=== PATIENT | female | born 1985 | race Caucasian/White ===

== ENCOUNTER 2021-04-26 10:59 | Emergency (ER) | payer OTHER ==
[~2021-04-26] VITALS: Ht 167.6 cm; Wt 49.9 kg
[2021-04-26 11:04] VITALS: BP_SYST 125
[2021-04-26 11:39] VITALS: BP_SYST 125
== END 2021-04-26 11:39 | disposition home or self-care (01) ==
LOC: SED 10:59
DX: M54.50 Low back pain, unspecified (principal); Z88.6 Allergy status to analgesic agent
CPT/HCPCS: 99283